=== PATIENT | female | born 1950 | race African-American/Black ===

== ENCOUNTER 2018-10-15 05:58 | Day surgery (SDC) | payer MEDICARE, BC ==
[2018-10-15] MEDS ORDERED: EPINEPHrine 0.1 MG/ML SYG (07:00)
[2018-10-15] MEDS ORDERED: PROPOFOL 20 ML (07:01)
[2018-10-15] MEDS ORDERED: CEFAZOLIN 1 GM INJ (07:01)
[2018-10-15] MEDS ORDERED: FENTAnyl 50 MCG/ML VIAL (07:01)
[2018-10-15] MEDS ORDERED: LIDOCAINE 2% (SDV) 5 ML INJ (07:01)
[2018-10-15] MEDS ORDERED: OXYCODONE/ACETAMINOPHEN (5/325) TAB PO ×2 (07:30)
[2018-10-15] MEDS ORDERED: FENTAnyl 50 MCG/ML VIAL IV ×3 (07:30)
[2018-10-15] MEDS ORDERED: FAMOTIDINE 20 MG INJ (07:58)
[2018-10-15] MEDS ORDERED: METOCLOPRAMIDE 10 MG INJ (07:58)
[2018-10-15] MEDS ORDERED: DEXAMETHASONE 4 MG/ML 5 ML INJ (07:58)
[2018-10-15] MEDS ORDERED: ONDANSETRON 4 MG INJ (07:58)
[2018-10-15] MEDS: ONDANSETRON 4 MG INJ IV (09:36)
[2018-10-15] MEDS: MEPERIDINE 25 MG INJ IV (09:36)
[2018-10-15] MEDS ORDERED: KETOROLAC 30 MG INJ IV (09:48)
== END 2018-10-15 11:00 | disposition home or self-care (01) ==
LOC: SDS 05:58
DX: N95.0 Postmenopausal bleeding (principal); I10 Essential (primary) hypertension; E78.5 Hyperlipidemia, unspecified; E66.01 Morbid (severe) obesity due to excess calories; Z68.38 Body mass index [BMI] 38.0-38.9, adult
CPT/HCPCS: 58558; 88305; 93005